=== PATIENT | female | born 1980 | race Caucasian/White ===

== ENCOUNTER 2018-04-10 10:48 | Outpatient (REF) | payer MEDICAID, SELFPAY ==
[2018-04-10 20:46] LABS: ALT 28 U/L (12-78); AST 18 U/L (15-37); Albumin 3.9 g/dL (3.4-5.0); Alkaline Phosphatase 62 U/L (46-116); Anion Gap 7.8 mmol/L (3-11); BUN 18 mg/dL (7-18); Bilirubin, Total 0.2 mg/dL (0.2-1.0); CO2 28.2 mmol/L (21.0-32.0); CREATININE 0.93 mg/dL (0.55-1.02); Calcium 8.8 mg/dL (8.5-10.1); Chloride 101 mmol/L (98-107); Cholesterol 190 mg/dL (50-200); Glucose 88 mg/dL (70-100); HDL Cholesterol 61 mg/dL (40-60); LDL CHOLESTEROL 116 mg/dL (<100); Magnesium 1.7 mg/dL (1.8-2.4); Potassium 4.6 mmol/L (3.5-5.1); Sodium 137 mmol/L (136-145); TSH (W/Ref FT4) 1.91 uIU/mL (0.358-3.74); Total Protein 7.1 g/dL (6.4-8.2); Triglyceride 55 mg/dL (30-150)
[2018-04-10 21:35] LABS: Hemoglobin A1C 5.5 % (4.5-6.2)
[2018-04-13 05:40] LABS: Vitamin D 25 Total 23.8 ng/ml (30-100)
== END 2018-04-10 11:08 ==
LOC: NCHCN 10:48
PROVIDERS: PCP Family Medicine; Visit Provider Family Medicine
DX: E55.9 Vitamin D deficiency, unspecified (principal); R25.2 Cramp and spasm; E66.9 Obesity, unspecified
CPT/HCPCS: 80053; 80061; 82306; 83721; 83036; 83735; 84443

== ENCOUNTER 2018-08-28 11:36 | Outpatient (REF) | payer MEDICAID, SELFPAY ==
[2018-08-28 21:19] LABS: HCT 38.5 % (36.0-46.0); HGB 12.8 g/dL (12.0-15.5); Mean Corp. HGB Concentration 33.2 g/dL (32.0-36.0); Mean Corpuscular Hemoglobin 29.1 pg (27.0-33.0); Mean Corpuscular Volume 87.5 fL (80-95); Mean Platelet Volume 10.3 fL (8.0-11.0); Platelet Count 245 x1000/uL (130-400); RBC Distribution Width 14.2 % (11.7-14.6); White Blood Cell Count 7.35 k/cumm (4.4-10.8)
[2018-08-28 21:40] LABS: Anion Gap 7.1 mmol/L (3-11); BUN 17 mg/dL (7-18); CO2 27.9 mmol/L (21.0-32.0); CREATININE 0.84 mg/dL (0.55-1.02); Calcium 8.9 mg/dL (8.5-10.1); Chloride 105 mmol/L (98-107); Glucose 117 mg/dL (70-100); Magnesium 2.1 mg/dL (1.8-2.4); Potassium 5.4 mmol/L (3.5-5.1); Sodium 140 mmol/L (136-145); TSH (W/Ref FT4) 1.64 uIU/mL (0.358-3.74)
[2018-08-31 06:44] LABS: Vitamin D 25 Total 19.8 ng/ml (30-100)
== END 2018-08-28 11:56 ==
LOC: NCHCN 11:36
PROVIDERS: PCP Family Medicine; Visit Provider Family Medicine
DX: R42 Dizziness and giddiness (principal); E83.42 Hypomagnesemia; H53.8 Other visual disturbances; E55.9 Vitamin D deficiency, unspecified; E66.8 Other obesity
CPT/HCPCS: 80048; 82306; 85027; 83735; 84443

== ENCOUNTER 2018-11-11 09:43 | Outpatient (REF) | payer MEDICAID, SELFPAY ==
[2018-11-19 12:18] LABS: Insulin <3.0 uU/mL (<29)
== END 2018-11-11 10:03 ==
LOC: NCHCN 09:43
PROVIDERS: PCP Family Medicine; Visit Provider Family Medicine
DX: R42 Dizziness and giddiness (principal); H53.8 Other visual disturbances
CPT/HCPCS: 83525

== ENCOUNTER 2020-04-27 16:23 | Outpatient (REF) | payer MEDICAID, SELFPAY ==
[2020-04-27 21:32] LABS: HCT 39.1 % (36.0-46.0); HGB 13.3 g/dL (11.2-15.7); MCV 85.4 fL (80-95); MPV 9.9 fL (8.0-11.0); Platelet Count 250 10^3/uL (130-400); RBC 4.58 10^6/uL (3.93-5.22); RDW 14.1 % (11.7-14.6); RDW-SD 43.6 fL
[2020-04-27 21:51] LABS: ALT 20 U/L (14-59); AST 18 U/L (15-37); Albumin 3.9 g/dL (3.4-5.0); Alkaline Phosphatase 61 U/L (46-116); Anion Gap 8.9 mmol/L (3-11); BUN 24 mg/dL (7-18); Bilirubin, Total 0.2 mg/dL (0.2-1.0); CO2 25.1 mmol/L (21.0-32.0); CREATININE 0.86 mg/dL (0.55-1.02); Calcium 8.6 mg/dL (8.5-10.1); Chloride 104 mmol/L (98-107); Glucose 101 mg/dL (74-106); Magnesium 2.2 mg/dL (1.8-2.4); Potassium 4.1 mmol/L (3.5-5.1); Sodium 138 mmol/L (136-145); TSH (W/Ref FT4) 1.88 uIU/mL (0.36-3.74)
[2020-04-27 22:18] LABS: Vitamin D 25 Total 34.5 ng/ml (30-100)
[2020-04-27 22:20] LABS: Hemoglobin A1C 5.4 % (<5.7)
== END 2020-04-27 16:43 ==
LOC: NCHCN 16:23
PROVIDERS: PCP Family Medicine; Visit Provider Family Medicine
DX: R42 Dizziness and giddiness (principal); R11.0 Nausea; E66.9 Obesity, unspecified; E83.42 Hypomagnesemia; E55.9 Vitamin D deficiency, unspecified
CPT/HCPCS: 80053; 82306; 85027; 83036; 83735; 84443

== ENCOUNTER 2021-09-27 15:47 | Outpatient (REF) | payer MEDICAID, SELFPAY ==
--- OUTSIDE RECORDS SUMMARY | 2021-09-27 15:51 | XMS_ITS | CCD ---
:1980 Author Care Team Providers Name Role Phone MD JAMES Attending Physician Unavailable Vital Signs Unknown or Not Available. Allergies Allergy Code Allergy Type Reaction Status No Known Drug Allergies 0 No known drug allergies Active Procedures Unknown or Not Available. History of Immunizations Unknown or Not Available. Problems Unknown or Not Available. Results Unknown or Not Available. Active Medications Unknown or Not Available. Medications Administered During Visit Unknown or Not Available. Encounters Encounter Diagnosis Diagnosis Code Start Date Encounter for follow-up examination after Z09 01/16/2021 completed treatment for conditions other than malignant neoplasm Social History Smoking Status Code Start Date End Date Current every day smoker [id number] Patient Decision Aids Unknown or Not Available. Discharge Instructions You were admitted to [facility] on 01/16/2021 14:43 with a principal diagnosis of Encntr for f/u exam aft trt mt for cond oth than malig neoplm You were discharged from [facility] on 01/16/2021 14:43 Should you have any questions prior to d ischarge, please contact a member of your healthcare team. If you have left the ho spital and have any questions, please contact your primary care physician. Chief Complaint and Reason For Visit Unknown or Not Available. Function Status Unknown or Not Available. Plan of Care Unknown or Not Available. Referral/Transition of Care Unknown or Not Available.
--- OUTSIDE RECORDS SUMMARY | 2021-09-27 15:51 | XMS_ITS | CCD ---
[...] Encounters Encounter Diagnosis Diagnosis Code Start Date Other acute appendicitis without perforation or [id number] 12/26/2020 gangrene Social History Smoking Status Code Start Date End Date Current every day smoker [id number] Patient Decision Aids Unknown or Not Available. Discharge Instructions You were admitted to [facility] on 12/26/2020 14:31 with a principal diagnosis of Other acute appendicitis wi thout perforation or gangrene You were discharged from [facility] on 12/27/2020 14:31 Should you have any questions prior to [...]
[2021-09-27 22:27] LABS: Anion Gap 7.9 mmol/L (3-11); BUN 28 mg/dL (7-18); CO2 28.1 mmol/L (21.0-32.0); CREATININE 0.9 mg/dL (0.55-1.02); Chloride 104 mmol/L (98-107); Glucose 101 mg/dL (74-106); Potassium 5.1 mmol/L (3.5-5.1); Sodium 140 mmol/L (136-145)
[2021-09-29 10:41] LABS: COVID-19 RT-PCR UVMMC Result Negative (Negative)
== END 2021-09-27 15:48 | disposition home or self-care (01) ==
LOC: NCHCN 15:47
PROVIDERS: PCP Family Medicine; Visit Provider Registered Nurse
DX: J45.40 Moderate persistent asthma, uncomplicated (principal); Z20.822 Contact with and (suspected) exposure to COVID-19; Z51.81 Encounter for therapeutic drug level monitoring
CPT/HCPCS: 80048; U0003

== ENCOUNTER 2023-09-11 18:28 | Outpatient (REF) | payer MEDICAID, SELFPAY ==
[2023-09-11 21:39] LABS: ALT 23 U/L (14-59); AST 18 U/L (15-37); Albumin 3.9 g/dL (3.4-5.0); Alkaline Phosphatase 71 U/L (46-116); Anion Gap 6.9 mmol/L (3-11); BUN 19 mg/dL (7-18); Bilirubin, Total 0.2 mg/dL (0.2-1.0); CO2 28.1 mmol/L (21.0-32.0); CREATININE 0.9 mg/dL (0.55-1.02); Calcium 9.1 mg/dL (8.5-10.1); Chloride 103 mmol/L (98-107); Estimated GFR 81.86 (mL/min/1.73m2); Glucose 110 mg/dL (74-106); Potassium 4.8 mmol/L (3.5-5.1); Sodium 138 mmol/L (136-145); Total Protein 7.6 g/dL (6.4-8.2)
[2023-09-11 21:51] LABS: Vitamin D 25 Total 24.7 ng/mL (30-100)
== END 2023-09-11 18:29 | disposition home or self-care (01) ==
LOC: NCHCN 18:28
PROVIDERS: PCP Family Medicine; Referring Provider Family Medicine; Visit Provider Family Medicine
DX: E66.9 Obesity, unspecified (principal); E55.9 Vitamin D deficiency, unspecified
CPT/HCPCS: 80053; 82306; 84443

== ENCOUNTER 2023-11-11 11:44 | Outpatient (REF) | payer MEDICAID, SELFPAY ==
--- NOTE | 2023-11-11 14:30 | PAPFT_PTH ---
PATIENT: Luba Bonner LOC: [facility] U#:[id number] AGE/SX: 43/F ROOM: RE11/11/[address]: Ulysses Milton : 1980 BED: DIS: 11/11/2023 SPEC #: [id number] RECD: 11/12/23 13:07 STATUS: LAMINE REMarli #: [id number] SHERI: 11/11/23 14:[address]: Ulysses Milton DEPT: [facility] Cytology RECD BY: Jazz Colby Tissues: 1 - CX/ENDOCX FOR PAP SMEARS Procedures: PAP THIN PREP/[facility] Screening HPV DNA PROBE Comments: [id number]
== END 2023-11-11 11:45 | disposition home or self-care (01) ==
LOC: LBN 11:44
PROVIDERS: PCP Family Medicine; Visit Provider Family Medicine
DX: Z12.4 Encounter for screening for malignant neoplasm of cervix (principal)
CPT/HCPCS: 88142; 87624

== ENCOUNTER 2024-03-26 15:55 | Outpatient (REF) | payer MEDICAID, SELFPAY ==
[2024-03-26 22:32] LABS: Hemoglobin A1C 5.5 % (<5.7)
[2024-03-26 22:52] LABS: ALT 26 U/L (14-59); AST 16 U/L (15-37); Albumin 4.4 g/dL (3.4-5.0); Alkaline Phosphatase 75 U/L (46-116); Anion Gap 9.2 mmol/L (3-11); BUN 21 mg/dL (7-18); Bilirubin, Total 0.23 mg/dL (0.2-1.0); CO2 30.8 mmol/L (21.0-32.0); Calcium 9.3 mg/dL (8.5-10.1); Calculated LDL 123 mg/dL (<100); Chloride 105 mmol/L (98-107); Cholesterol 212 mg/dL (<200); Estimated GFR 71.69 (mL/min/1.73m2); Glucose 119 mg/dL (74-106); HDL Cholesterol 76 mg/dL (40-60); Potassium 5.3 mmol/L (3.5-5.1); Sodium 145 mmol/L (136-145); TSH (W/Ref FT4) 1.86 uIU/mL (0.36-3.74); Total Protein 7.8 g/dL (6.4-8.2); Triglyceride 67 mg/dL (<150)
== END 2024-03-26 15:56 | disposition home or self-care (01) ==
LOC: NCHCN 15:55
PROVIDERS: PCP Family Medicine; Visit Provider Family Medicine
DX: E66.9 Obesity, unspecified (principal); E55.9 Vitamin D deficiency, unspecified
CPT/HCPCS: 80053; 80061; 82306; 83036; 84443

== ENCOUNTER 2024-10-01 18:56 | Outpatient (REF) | payer MEDICAID, SELFPAY ==
[2024-10-01 20:49] LABS: HCT 41.1 % (36.0-46.0); HGB 13.1 g/dL (11.2-15.7); MCH 28.3 pg (27.0-33.0); MCHC 31.9 % (32.0-36.0); MCV 89 fL (80-95); MPV 9.4 fL (8.0-11.0); Platelet Count 279 10^3/uL (130-400); RBC 4.63 10^6/uL (3.93-5.22); RDW 13.2 % (11.7-14.6)
[2024-10-01 21:08] LABS: ALT 27 U/L (14-59); AST 20 U/L (15-37); Albumin 3.8 g/dL (3.4-5.0); Alkaline Phosphatase 63 U/L (46-116); Anion Gap 5.3 mmol/L (3-11); BUN 25 mg/dL (7-18); Bilirubin, Total 0.1 mg/dL (0.2-1.0); CO2 32.7 mmol/L (21.0-32.0); CREATININE 1.2 mg/dL (0.55-1.02); Calcium 9.6 mg/dL (8.5-10.1); Chloride 103 mmol/L (98-107); Glucose 114 mg/dL (74-106); Potassium 4.5 mmol/L (3.5-5.1); Sodium 141 mmol/L (136-145); TSH (W/Ref FT4) 1.47 uIU/mL (0.36-3.74); Total Protein 7.3 g/dL (6.4-8.2)
[2024-10-02 22:04] LABS: Estradiol 67 pg/mL (See Note)
== END 2024-10-01 18:57 | disposition home or self-care (01) ==
LOC: NCHCN 18:56
PROVIDERS: PCP Family Medicine; Visit Provider Family Medicine
DX: N95.1 Menopausal and female climacteric states (principal); R23.2 Flushing
CPT/HCPCS: 80053; 85027; 82670; 83001; 84443